=== PATIENT | male | born 1985 | race Caucasian/White ===

== ENCOUNTER 2022-06-02 10:25 | Outpatient (CLI) | payer OTHER | END 2022-06-02 23:59 | disposition home or self-care (01) | LOC: MLB 10:25 → EDSTATUS 06-04 12:51 | PROVIDERS: ATTEND Internal Medicine Gastroenterology | DX: Z01.818 Encounter for other preprocedural examination (principal); Z20.822 Contact with and (suspected) exposure to COVID-19 ==